=== PATIENT | male | born 1990 | race Hispanic/Latino ===

== ENCOUNTER 2025-04-23 20:18 | Emergency (ER) | payer SELFPAY ==
[2025-04-23] MEDS ORDERED: Bacitracin 1 PK ONE (21:34)
== END 2025-04-23 21:50 | disposition home or self-care (01) ==
LOC: NAV ERS 20:18
DX: S61.213A Laceration without foreign body of left middle finger without damage to nail, initial encounter (principal); F17.200 Nicotine dependence, unspecified, uncomplicated; Z23 Encounter for immunization; W45.8XXA Other foreign body or object entering through skin, initial encounter
CPT/HCPCS: 90471; 90715